=== PATIENT | female | born 1995 | race Caucasian/White ===

== ENCOUNTER → 2017-10-24 11:10 | Outpatient (CLI) | payer MEDICAID, SELFPAY ==
[2017-10-24 13:29] LABS: hCG Titer Quant., Serum 147 mIU/mL (<9 non-preg)
== END ==
PROVIDERS: Family Provider Pediatrics; PCP Pediatrics; Visit Provider Obstetrics & Gynecology
DX: O09.90 Supervision of high risk pregnancy, unspecified, unspecified trimester (principal); Z3A.00 Weeks of gestation of pregnancy not specified
CPT/HCPCS: 36415; 84702

== ENCOUNTER → 2017-10-26 09:07 | Outpatient (CLI) | payer MEDICAID, SELFPAY ==
[2017-10-26 12:57] LABS: hCG Titer Quant., Serum 326 mIU/mL (<9 non-preg)
== END ==
PROVIDERS: Family Provider Pediatrics; PCP Pediatrics; Visit Provider Obstetrics & Gynecology
DX: Z34.90 Encounter for supervision of normal pregnancy, unspecified, unspecified trimester (principal); O09.299 Supervision of pregnancy with other poor reproductive or obstetric history, unspecified trimester; Z3A.00 Weeks of gestation of pregnancy not specified
CPT/HCPCS: 36415; 84702

== ENCOUNTER → 2017-11-15 10:44 | Outpatient (CLI) | payer MEDICAID, SELFPAY ==
[2017-11-15 12:36] LABS: Absolute Lymphocyte Count 1.58 X10^3/ul (0.83-4.51); Absolute Neutrophil Count 2.9 X10^3/uL (2.0-7.7); Basophil# 0.01 X10^3/uL; Basophil% 0.2 % (0-1); Eosinophil# 0.08 X10^3/uL; Eosinophils% 1.5 % (0-5); Hematocrit 39.7 % (37-47); Hemoglobin 13.1 g/dl (12.0-15.0); Lymphocyte # 1.58 X10^3/ul (4.0); Lymphocyte % 29.4 % (19-41); Mean Corpuscular Hgb 29.7 pg (27.0-32.0); Mean Platelet Vol. 11.2 fl (6.2-12.0); Monocyte# 0.76 X10^3/uL; Monocyte% 14.2 % (0-10); Neutrophil # 2.94 X10^3/uL (2.7-7.7); Neutrophil % 54.7 % (47-70); Platelet Count 193 K/mm3 (150-450); RBC Distribution Width CV 14.5 % (11.6-14.6); RBC Distribution Width SD 47.1 fl (35.1-43.9); Red Blood Count 4.41 M/mm3 (4.2-5.4); White Blood Count 5.4 K/mm3 (4.4-11.0)
[2017-11-15 12:41] LABS: POSITIVE COUNT NO; POSITIVE DIFFERENTIAL NO; POSITIVE MORPHOLOGY NO
[2017-11-16 09:46] LABS: HIV - WCH Non-Reactive (Nonreactive); Rubella IgG 1.9 IU/mL
[2017-11-16 11:27] LABS: HEPATITIS B SURFACE AG Negative (Negative)
[2017-11-18 03:15] LABS: Rapid Plasmin Reagin (RPR) NONREACTIVE (NONREACTIVE)
== END ==
PROVIDERS: Family Provider Pediatrics; PCP Pediatrics; Visit Provider Obstetrics & Gynecology
DX: O09.90 Supervision of high risk pregnancy, unspecified, unspecified trimester (principal); Z3A.00 Weeks of gestation of pregnancy not specified
CPT/HCPCS: 36415; 85025; 86592; 86703; 86762; 86850; 86900; 87340

== ENCOUNTER → 2017-11-15 11:32 | Outpatient (CLI) | payer MEDICAID, SELFPAY ==
[2017-11-15 13:27] LABS: Chlamydia Trachomatis by PCR POSITIVE (Negative); Neisserai gonorrhoeae by PCR Negative (Negative); Probe Check PASS
== END ==
PROVIDERS: Visit Provider Obstetrics & Gynecology
DX: O09.90 Supervision of high risk pregnancy, unspecified, unspecified trimester (principal); Z3A.00 Weeks of gestation of pregnancy not specified
CPT/HCPCS: 36415; 85025; 86592; 86703; 86762; 86850; 86900; 87086; 87088; 87340; 87491; 87591

== ENCOUNTER → 2017-12-21 12:42 | Outpatient (CLI) | payer MEDICAID, SELFPAY ==
[2017-12-21 17:12] LABS: Chlamydia Trachomatis by PCR Negative (Negative); Neisserai gonorrhoeae by PCR Negative (Negative); Probe Check PASS; Sample Adequacy Control PASS; Specimen Processing Control PASS
== END ==
PROVIDERS: Visit Provider Nurse Practitioner Women's Health
DX: O98.811 Other maternal infectious and parasitic diseases complicating pregnancy, first trimester (principal); A74.9 Chlamydial infection, unspecified; Z3A.00 Weeks of gestation of pregnancy not specified
CPT/HCPCS: 87491; 87591

== ENCOUNTER 2018-02-20 10:15 | Outpatient (CLI) | payer MEDICAID, SELFPAY ==
[2018-02-20 10:34] VITALS: BMI 29.1
[2018-02-20 11:30] LABS: Absolute Lymphocyte Count 0.49 X10^3/ul (0.83-4.51); Absolute Neutrophil Count 5.4 X10^3/uL (2.0-7.7); Basophil# 0.01 X10^3/uL; Basophil% 0.2 % (0-1); Differential Indicated SCAN CRITERIA MET; Eosinophil# 0.05 X10^3/uL; Eosinophils% 0.8 % (0-5); Hematocrit 36.9 % (37-47); Hemoglobin 12.5 g/dl (12.0-15.0); Lymphocyte # 0.49 X10^3/ul (4.0); Lymphocyte % 7.8 % (19-41); Mean Corp Hgb Conc 33.9 g/gl (32-36); Mean Corpuscular Hgb 32.1 pg (27.0-32.0); Mean Corpuscular Volume 94.6 fL (81-99); Monocyte# 0.33 X10^3/uL; Monocyte% 5.3 % (0-10); Neutrophil # 5.38 X10^3/uL (2.7-7.7); Neutrophil % 85.6 % (47-70); POSITIVE COUNT NO; POSITIVE DIFFERENTIAL YES; POSITIVE MORPHOLOGY NO; Platelet Count 193 K/mm3 (150-450); RBC Distribution Width CV 14.2 % (11.6-14.6); RBC Distribution Width SD 47.5 fl (35.1-43.9); White Blood Count 6.3 K/mm3 (4.4-11.0)
[2018-02-20 12:15] LABS: Bacteria 0 SEEN /hpf (None Seen); Mucous, Urine 0 SEEN /hpf (<or=2+); Red Blood Cells-Urine 0 SEEN /hpf (0-5)
[2018-02-20 12:17] LABS: Color, Urine Yellow (Yellow); Glucose, Dipstick Normal (Normal); Ketone-Dipstick 50 mg/dl (Negative); Leukocyte Esterase-Dipstick 25 /ul (Negative); Nitrite-Dipstick Negative (Negative); Occult Blood-Urine Negative /ul (Negative); Protein-Dipstick Negative (Negative); Urine Bilirubin Dipstick Negative (Negative); Urine Clarity Sl. Cloudy (Clear); Urine Urobilinogen Normal (Normal)
[2018-02-20 12:27] LABS: Squamous Epithelial Cells - UA 0-5 SEEN /hpf (5-10); White Blood Cells 0-5 SEEN /hpf (0-5)
--- NOTE | 2018-02-21 09:00 | OB.TRI.NOTE ---
- Problem List (1) Threatened labor Status: Acute History of Present Illness Date of Service: 02/20/18 Was patient seen by the physician?: No Reason For Visit: NAUSEA VOMITING ABDOMINAL PAIN History of Present Illness: c oabdominal cramping Allergies No Known Allergies Allergy (Verified 02/20/18 10:34) - Pertinent Past Medical History Medical History: Past Medical History (Last Reviewed 02/13/18 @ 12:00 by Milly Sorenson) Depression Surgical History: Past Surgical History (Last Reviewed 02/13/18 @ 12:00 by Milly Sorenson) History of appendectomy NST - FHR Rate Baby A Baseline: 150-160 Uterine Activity:: no ctx Impression/Plan threatened ptl abdomina lpain cervix closed no regular ctx dc home
== END 2018-02-20 14:05 | disposition home or self-care (01) ==
LOC: WPOUT 10:22 → WP 02-23 09:16
PROVIDERS: Visit Provider Obstetrics & Gynecology
DX: O47.00 False labor before 37 completed weeks of gestation, unspecified trimester (principal); Z3A.00 Weeks of gestation of pregnancy not specified
CPT/HCPCS: 59050; 81001; 85025; 99218; G0378

== ENCOUNTER 2018-04-08 23:22 | Observation (INO) | payer MEDICAID, SELFPAY ==
[2018-04-08 23:46] LABS: Bacteria 0 SEEN /hpf (None Seen); Mucous, Urine 0 SEEN /hpf (<or=2+); Red Blood Cells-Urine 0 SEEN /hpf (0-5)
[2018-04-08 23:56] LABS: Color, Urine Yellow (Yellow); Glucose, Dipstick Normal (Normal); Ketone-Dipstick 5 mg/dl (Negative); Leukocyte Esterase-Dipstick 100 /ul (Negative); Nitrite-Dipstick Negative (Negative); Occult Blood-Urine Negative /ul (Negative); Protein-Dipstick Negative (Negative); Urine Bilirubin Dipstick Negative (Negative); Urine Clarity Sl. Cloudy (Clear); Urine Urobilinogen Normal (Normal); Urine pH 6.5 (5.0 - 8.0)
[2018-04-08 23:57] VITALS: BMI 28.0
[2018-04-09 00:13] LABS: Fetal Fibronectin Negative
[2018-04-09 00:22] LABS: Amorphous Sediment 2+ URATE; Squamous Epithelial Cells - UA 0-5 SEEN /hpf (5-10); White Blood Cells 5-10 SEEN /hpf (0-5)
[2018-04-09] MEDS: Nalbuphine 10 MG/ML Ampul IM ×2 (00:34→17:20)
[2018-04-09] MEDS: Betamethasone/Betamethasone 30 MG/5 ML Vial 12 MG IM (01:57)
[2018-04-09] MEDS: DiphenhydrAMINE 25 MG Capsule 50 MG PO (02:07)
--- NOTE | 2018-04-09 03:25 | PCM.HP.OB ---
- Problem List (1) Threatened labor Status: Acute History Date of Admission: 04/09/18 Final LUDIVINA: 07/01/18 Gestational age: 28 Weeks and 1 Days History of this : 22 yo presents at 28 weeks with contractions and cramping. she has a negative fibernectin, and she isn't having regular contractions now, but has some questionable cervical change. she is on progesterone injections for a history of 19 week labor and delivery and loss. Medical History: Medical History (Last Reviewed 03/13/18 @ 14:00 by Domonique Wheatley) Depression Surgical History: Surgical History (Last Reviewed 03/13/18 @ 14:00 by Domonique Wheatley) History of appendectomy Z98.890, Z90.49 Allergies No Known Allergies Allergy (Verified 03/13/18 14:00) Home Medications: Home Medications vitamin,calcium,ihibbojb-slro-vtrty acid tablet 1 tab PO QDAY MDD one 10/24/17 Hydroxyprogesterone Caproate [Sharonda] IM QWEEK 04/08/18 Smoking Status: Current every day smoker Alcohol: None Number of Fetus(es): 1 Heart Tracin moderate variability reactive no decels cat I TOCO Analysis: no regular History Past Pregnancies: Past Pregnancies Delivery Date Name GA/Weeks Outcome Route Weight Gender Labor Length Anesthesia Delivery Location Provider FOB yajaira 19 PTD- loss Labs: [facility] Microbiology 04/08/18 23:35 Urine, Clean Catch Urine Culture - Pending [facility] Labs & Results 04/08/18 04/08/18 23:15 23:35 Urine Color Yellow Urine Clarity Sl. Cloudy Urine pH 6.5 Ur Specific [place] 1.020 Urine Protein Negative Urine Glucose (UA) Normal Urine Ketones 5 H Urine Occult Blood Negative Urine Nitrite Negative Urine Bilirubin Negative Urine Urobilinogen Normal Ur Leukocyte Esterase 100 H Urine RBC 0 SEEN Urine WBC 5-10 SEEN Ur Squamous Epith Cells 0-5 SEEN Amorphous Sediment 2+ URATE Urine Bacteria 0 SEEN Urine Mucus 0 SEEN Fibronectin Negative Social History Smoking Status Current every day smoker Expected Infant Delivery Method: Spontaneous Vaginal Review of Systems Constitutional: Denies: Fever, Malaise Eyes: Denies: Blurred vision, Vision Change HEENT: Denies: Head Aches, Visual Changes Cardiovascular: Denies: Chest Pain, Palpitations Respiratory: Denies: Cough, Shortness of Breath, Wheezing Gastrointestinal: Denies: Abdominal Pain, Diarrhea, Nausea, Vomiting Genitourinary: Denies: Dysuria, Hematuria Musculoskeletal: Denies: Joint Pain, Muscle pain Skin: Denies: Lesions, Rash Neurological: Denies: Blurred vision, Focal weakness, Headaches Psychiatric: Denies: Anxiety, Depression Endocrine: Denies: Heat/ Cold Intolerance Hematologic/ Lymphatic: Denies: Easy Bruising, Easy Bleeding Physical Exam General: Alert, Cooperative, No apparent distress HEENT: Atraumatic, Normocephalic. Negative for: Thyromegaly, Lymphadenopathy Cardiovascular: Regular rate Lungs: Normal air movement Abdomen: Soft, Non Tender, Gravid Neurological: Deep Tendon Reflexes 2+/4 and Symmetrical, Neuro grossly intact. Negative for: Clonus RN LIAISON: Normal external genitalia. Negative for: Vulvar lesions Estimated gestational size: Appropriate for gestational size Presentation: Cephalic Cervix Dilation (cm): 1.5 Station: -3 Effacement (%): 20 Assessment/Plan All Active Problems (Last Reviewed 03/13/18 @ 14:00 by Domonique Wheatley) Threatened labor (Acute) screening encounter (Acute) Rubella non-immune status, antepartum (Acute) Chlamydia infection affecting in first trimester, antepartum (Acute) History of delivery, currently (Acute) Anxiety and depression (Acute) Supervision of high-risk (Acute) This is a 22 year-old, at 28 weeks gestational age with threatened PTL 1. contractions- exp management for now due to questionable cervical change. negative FFN. check cervical length on ultrasound tomorrow. monitor. if cervical change or shortened cervical length recommend tocolytics. 2. prematurity- give celestone. check ua culture, gc chlamydia, rapid strep, urine tox
[2018-04-09 04:13] LABS: Amphetamine Urine VISTA NEGATIVE (<1000 ng/mL); Barbiturate Urine VISTA NEGATIVE (< 200 ng/mL); Benzodiazepine Urine VISTA NEGATIVE (< 200 ng/mL); Cocaine Urine VISTA NEGATIVE (< 300 ng/mL); Ecstacy Urine VISTA NEGATIVE (< 500 ng/mL); Methadone Urine VISTA NEGATIVE (< 300 ng/mL); PCP Urine VISTA NEGATIVE (< 25 ng/mL); THC Urine VISTA POSITIVE (< 50 ng/mL); Vista UDS pH Range 6
--- NOTE | 2018-04-09 04:15 | PCM.PN.BLA ---
Progress Note toco- no regular ctx. cervical exam repeated and no cervical change. recommend expectant management.
[2018-04-09 05:57] LABS: Group B Strep DNA By PCR Negative (Negative); Internal Control PASS; Probe Check PASS; Specimen Processing Control PASS
[2018-04-09 06:03] LABS: Chlamydia Trachomatis by PCR Negative (Negative); Neisserai gonorrhoeae by PCR Negative (Negative)
[2018-04-09 06:04] LABS: Probe Check PASS; Sample Adequacy Control PASS; Specimen Processing Control PASS
[2018-04-09] MEDS: Acetaminophen 500 MG Tablet 1000 MG PO (13:02)
--- NOTE | 2018-04-09 14:59 | PCM.PN.OB ---
Patient Problems: Active and Suspected Problems (Last Reviewed 03/13/18 @ 14:00 by Domonique Wheatley) Threatened labor (Acute) Subjective: patient still feeling crampy, no regular or timeable contractions but feeling pelvic pressure. she had some mucousy bloody discharge after being checked this morning but nothing since. Objective: fht 140s moderate variability reactive no decels. cat I tracing [place] no contractions seen - Physical Exam General: Alert, Oriented x3 Lungs: Normal air movement Abdomen: Soft, Non Tender, Gravid Weight: 163 lb 2.273 oz Body Mass Index (BMI) 28.0 Laboratory Tests Past 24 Hrs 04/08/18 04/08/18 04/08/18 23:15 23:35 23:35 Urine Color Yellow Urine Clarity Sl. Cloudy Urine pH 6.5 Ur Specific [place] 1.020 Urine Protein Negative Urine Glucose (UA) Normal Urine Ketones 5 H Urine Occult Blood Negative Urine Nitrite Negative Urine Bilirubin Negative Urine Urobilinogen Normal Ur Leukocyte Esterase 100 H Urine RBC 0 SEEN Urine WBC 5-10 SEEN Ur Squamous Epith Cells 0-5 SEEN Amorphous Sediment 2+ URATE Urine Bacteria 0 SEEN Urine Mucus 0 SEEN Urine Opiates Screen NEGATIVE Urine Methadone Screen NEGATIVE Ur Barbiturates Screen NEGATIVE Ur Phencyclidine Scrn NEGATIVE Ur Amphetamines Screen NEGATIVE U Methamphetamin-MDMA NEGATIVE U Benzodiazepines Scrn NEGATIVE Urine Cocaine Screen NEGATIVE U Cannabinoids Screen POSITIVE H Ur Drug Screen Comment Chlam trachomat DNA PCR N.gonorrhoeae DNA (PCR) Group B Strep DNA Fibronectin Negative Specimen Comment 04/09/18 04/09/18 04:00 04:00 Urine Color Urine Clarity Urine pH Ur Specific [place] Urine Protein Urine Glucose (UA) Urine Ketones Urine Occult Blood Urine Nitrite Urine Bilirubin Urine Urobilinogen Ur Leukocyte Esterase Urine RBC Urine WBC Ur Squamous Epith Cells Amorphous Sediment Urine Bacteria Urine Mucus Urine Opiates Screen Urine Methadone Screen Ur Barbiturates Screen Ur Phencyclidine Scrn Ur Amphetamines Screen U Methamphetamin-MDMA U Benzodiazepines Scrn Urine Cocaine Screen U Cannabinoids Screen Ur Drug Screen Comment Chlam trachomat DNA PCR Negative N.gonorrhoeae DNA (PCR) Negative Group B Strep DNA Negative Fibronectin Specimen Comment Not Reportable Medical Necessity - Tobacco Use Smoking Status: Current every day smoker Assessment/Plan All Active Problems (Last Reviewed 03/13/18 @ 14:00 by Domonique Wheatley) Threatened labor (Acute) screening encounter (Acute) Rubella non-immune status, antepartum (Acute) Chlamydia infection affecting in first trimester, antepartum (Acute) History of delivery, currently (Acute) Anxiety and depression (Acute) Supervision of high-risk (Acute) This is a 22 year-old, at 28 weeks gestational age with threatened PTL 1. contractions- exp management for now due to questionable cervical change. negative FFN. cervical length 2.3 cm. monitor. if cervical change recommend tocolytics. 2. prematurity- s/p celestone x 1. repeat at 2 am 3. h/o 19 week delivery- weekly progesterone shots
[2018-04-10] MEDS: Nalbuphine 10 MG/ML Ampul IM (00:09)
[2018-04-10] MEDS: Betamethasone/Betamethasone 30 MG/5 ML Vial 12 MG IM (01:52)
[2018-04-10] MEDS: Acetaminophen 500 MG Tablet 1000 MG PO (01:58)
[2018-04-10] MEDS: Zolpidem Tartrate 5 MG Tablet PO (01:59)
[2018-04-10] MEDS: NON-FORMULARY MISCELL. (08:49)
== END 2018-04-10 09:16 | disposition home or self-care (01) ==
PROVIDERS: Admitting Provider Obstetrics & Gynecology; Visit Provider Obstetrics & Gynecology
DX: O60.03 Preterm labor without delivery, third trimester (principal); Z3A.28 28 weeks gestation of pregnancy; O99.333 Smoking (tobacco) complicating pregnancy, third trimester; F17.200 Nicotine dependence, unspecified, uncomplicated; Z87.42 Personal history of other diseases of the female genital tract; O99.89 Other specified diseases and conditions complicating pregnancy, childbirth and the puerperium; N20.0 Calculus of kidney
CPT/HCPCS: 59025; 59050; 76770; 76816; 80307; 81001; 82731; 87081; 87086; 87088; 87491; 87591; 87653; 96372; 99218; G0378; J0702

== ENCOUNTER 2018-04-10 15:30 | Outpatient (CLI) | payer MEDICAID, SELFPAY ==
[2018-04-10 15:48] VITALS: BMI 27.8
--- NOTE | 2018-04-11 21:51 | OB.TRI.NOTE ---
- Problem List (1) Threatened labor Status: Acute History of Present Illness Date of Service: 04/10/18 Was patient seen by the physician?: Yes Reason For Visit: R/O LABOR Date of Service: 04/10/18 History of Present Illness: co back pain- possible kidney stone, threatened PTL Allergies No Known Allergies Allergy (Verified 03/13/18 14:00) - Pertinent Past Medical History Medical History: Past Medical History (Last Reviewed 03/13/18 @ 14:00 by Domonique Wheatley) Depression Surgical History: Past Surgical History (Last Reviewed 03/13/18 @ 14:00 by Domonique Wheatley) History of appendectomy NST - FHR Rate Baby A Baseline: 130 Variability:: Moderate Accelerations:: 15 x 15 Decelerations:: None NST Reactive:: Yes FHR Category:: Category I Uterine Activity:: no regular Impression/Plan kidney stones- renal ultrasound suspicious, dc home aggressive fluids and pain control
== END 2018-04-10 18:35 | disposition home or self-care (01) ==
LOC: WPOUT 15:34 → WP 15:35
PROVIDERS: Visit Provider Obstetrics & Gynecology
DX: O99.89 Other specified diseases and conditions complicating pregnancy, childbirth and the puerperium (principal); N20.0 Calculus of kidney; Z3A.00 Weeks of gestation of pregnancy not specified
CPT/HCPCS: 59025; 59050; 76770; 99218; G0378

== ENCOUNTER → 2018-04-13 10:53 | Outpatient (CLI) | payer MEDICAID, SELFPAY ==
[2018-04-13 13:20] LABS: Glucose Challenge Gest 1H 50g 104 mg/dL (70-140)
== END ==
PROVIDERS: Visit Provider Obstetrics & Gynecology
DX: Z34.90 Encounter for supervision of normal pregnancy, unspecified, unspecified trimester (principal)
CPT/HCPCS: 36415; 82950

== ENCOUNTER 2018-05-31 18:10 | Outpatient (CLI) | payer MEDICAID, SELFPAY ==
[2018-05-31 18:26] VITALS: BMI 29.7
[2018-05-31 18:36] LABS: Color, Urine Yellow (Yellow); Glucose, Dipstick Normal (Normal); Ketone-Dipstick Negative (Negative); Leukocyte Esterase-Dipstick 100 /ul (Negative); Nitrite-Dipstick Negative (Negative); Occult Blood-Urine Negative /ul (Negative); Protein-Dipstick Negative (Negative); Specific Gravity, Urine 1.005 (1.002-1.030); Urine Bilirubin Dipstick Negative (Negative); Urine Clarity Sl. Cloudy (Clear); Urine Urobilinogen Normal (Normal)
[2018-05-31] MEDS: Lactated Ringers 1,000 ML 999 ML IV (19:14)
[2018-05-31] MEDS: proMETHazine 25 MG/ML Syringe 12.5 MG IV (19:14)
[2018-05-31 19:54] LABS: ALB/GLOB Ratio 0.7 RATIO (0.9-2.4); AST(SGOT) 12 U/L (15-37); Alanine Aminotransfer ALT/SGPT 18 U/L (13-56); Albumin, Serum 2.7 g/dL (3.2-5.0); Alkaline Phosphatase 94 U/L (45-117); Anion Gap 7 (5-15); BUN 10 mg/dL (7-18); BUN/Creat Ratio 24.7 RATIO (10-20); Calcium,Total 8.3 mg/dL (8.5-10.1); Chloride 105 mmol/L (98-107); EST Glomerular Filtration Rate 208 mL/min (>60); Est Glom Filt Rate - Afr Amer 252 mL/min (>60); Globulin 3.9 g/dL (2.2-4.2); Glucose 77 mg/dL (74-106); Potassium 3.9 mmol/L (3.5-5.1); Protein, Total 6.6 g/dL (6.4-8.2); Sodium Level 134 mmol/L (136-145)
--- NOTE | 2018-06-05 21:09 | OB.TRI.NOTE ---
- Problem List (1) False labor Status: Acute History of Present Illness Date of Service: 05/31/18 Reason For Visit: ABD PAIN History of Present Illness: co abdominal pain possible contractions Allergies No Known Allergies Allergy (Verified 05/29/18 10:30) - Pertinent Past Medical History Medical History: Past Medical History (Last Reviewed 05/29/18 @ 10:30 by Amber Alex) Depression Kidney stone Surgical History: Past Surgical History (Last Reviewed 05/29/18 @ 10:30 by Amber Alex) History of appendectomy Laboratory Studies: Laboratory Tests 05/31/18 05/31/18 Range/Units 19:05 18:25 Sodium 134 L (136-145) mmol/L Potassium 3.9 (3.5-5.1) mmol/L Chloride 105 (98-107) mmol/L Carbon Dioxide 22.0 (21.0-32.0) mmol/L Anion Gap 7 (5-15) BUN 10 (7-18) mg/dL Creatinine 0.40 L (0.55-1.02) mg/dL Estim Creat Clear Calc 190.50 ml/min Est GFR (MDRD) Af Amer 252 (>60) mL/min Est GFR (MDRD) Non-Af 208 (>60) mL/min BUN/Creatinine Ratio 24.7 H (10-20) RATIO Glucose 77 (74-106) mg/dL Calcium 8.3 L (8.5-10.1) mg/dL Total Bilirubin 0.40 (0.20-1.00) mg/dL AST 12 L (15-37) U/L ALT 18 (13-56) U/L Alkaline Phosphatase 94 (45-117) U/L Total Protein 6.6 (6.4-8.2) g/dL Albumin 2.7 L (3.2-5.0) g/dL Globulin 3.9 (2.2-4.2) g/dL Albumin/Globulin Ratio 0.7 L (0.9-2.4) RATIO Urine Color Yellow (Yellow) Urine Clarity Sl. Cloudy (Clear) Urine pH 7.0 (5.0 - 8.0) Ur Specific [place] 1.005 (1.002-1.030) Urine Protein Negative (Negative) mg/dl Urine Glucose (UA) Normal (Normal) mg/dl Urine Ketones Negative (Negative) mg/dl Urine Occult Blood Negative (Negative) /ul Urine Nitrite Negative (Negative) Urine Bilirubin Negative (Negative) mg/dL Urine Urobilinogen Normal (Normal) mg/dl Ur Leukocyte Esterase 100 H (Negative) /ul Review of Systems Constitutional: Denies: Fever, Malaise Eyes: Denies: Blurred vision, Vision Change HEENT: Denies: Head Aches, Visual Changes Cardiovascular: Denies: Chest Pain, Palpitations Respiratory: Denies: Cough, Shortness of Breath, Wheezing Gastrointestinal: Denies: Abdominal Pain, Diarrhea, Nausea, Vomiting Genitourinary: Denies: Dysuria, Hematuria Musculoskeletal: Denies: Joint Pain, Muscle pain Skin: Denies: Lesions, Rash Neurological: Denies: Blurred vision, Focal weakness, Headaches Psychiatric: Denies: Anxiety, Depression Endocrine: Denies: Heat/ Cold Intolerance Hematologic/ Lymphatic: Denies: Easy Bruising, Easy Bleeding Physical Exam General: Alert, Cooperative, No apparent distress HEENT: Atraumatic, Normocephalic. Negative for: Thyromegaly, Lymphadenopathy Cardiovascular: Regular rate Lungs: Normal air movement Abdomen: Soft, Non Tender, Gravid Neurological: Deep Tendon Reflexes 2+/4 and Symmetrical, Neuro grossly intact. Negative for: Clonus BLACKJACK PIT BOSS: Normal external genitalia. Negative for: Vulvar lesions Estimated gestational size: Appropriate for gestational size Presentation: Cephalic NST - FHR Rate Baby A Baseline: 130 Variability:: Moderate Accelerations:: 15 x 15 Decelerations:: None NST Reactive:: Yes FHR Category:: Category I Uterine Activity:: No regular Impression/Plan 22-year-old presents with abdominal pain possible contractions, no significant dilation and no regular contractions false labor DC home labor precautions
== END 2018-05-31 20:45 | disposition home or self-care (01) ==
LOC: WPOUT 18:14 → WP 18:15
PROVIDERS: Visit Provider Obstetrics & Gynecology
DX: O47.9 False labor, unspecified (principal); Z3A.00 Weeks of gestation of pregnancy not specified
CPT/HCPCS: 96361; 96374; 36415; 59025; 59050; 80053; 81002; 87086; 87088; 99218; J7120; G0378

== ENCOUNTER 2018-06-07 00:27 | Inpatient (IN) | payer MEDICAID, SELFPAY ==
[2018-06-06 22:27] VITALS: BMI 29.9
[2018-06-06] MEDS: Nalbuphine 10 MG/ML Ampul IM (23:13)
[2018-06-07] MEDS: Lactated Ringers 1,000 ML 50 ML IV ×4 (00:52→08:23)
[2018-06-07 01:12] LABS: Hematocrit 38.2 % (37-47); Hemoglobin 12.7 g/dl (12.0-15.0); Mean Corp Hgb Conc 33.2 g/gl (32-36); Mean Corpuscular Hgb 31.4 pg (27.0-32.0); Mean Corpuscular Volume 94.6 fL (81-99); Mean Platelet Vol. 10.4 fl (6.2-12.0); Platelet Count 247 K/mm3 (150-450); RBC Distribution Width CV 13.1 % (11.6-14.6); RBC Distribution Width SD 43.5 fl (35.1-43.9); Red Blood Count 4.04 M/mm3 (4.2-5.4); White Blood Count 15.1 K/mm3 (4.4-11.0)
[2018-06-07 01:14] LABS: Scan Indicated on CBC? Y/N NO
--- NOTE | 2018-06-07 05:06 | PCM.HP.OB ---
- Problem List (1) Nephrolithiasis Status: Acute Comment: fluids, PRN pain meds (2) screening encounter Status: Acute Comment: NT done 12/21/17 (3) Rubella non-immune status, antepartum Status: Acute Comment: MMR (4) Chlamydia infection affecting in first trimester, antepartum Status: Acute Comment: Repeat at 36 wk (5) History of delivery, currently Status: Acute Comment: mfm consult, progesterone injections, serial cervical (6) Anxiety and depression Status: Acute Comment: zoloft in the past, none now recommend psychotherapy (7) Supervision of high-risk Status: Acute Qualifiers: Comment: PRR LUDIVINA 07/01/18 girl- [facility] ([facility] Zel[facility]) [facility] [place]- not involved History Date of Admission: 04/09/18 Final LUDIVINA: 07/01/18 Gestational age: 36 Weeks and 4 Days History of this : This is a 22 year-old, at 36 weeks gestational age presents in labor 5 cm dilated. she has had bloody show and denies any lof but has had regular painful ctx. she has had a complicated by contractions. Medical History: Medical History (Last Reviewed 05/29/18 @ 10:30 by Amber Alex) Depression Kidney stone N20.0 Surgical History: Surgical History (Last Reviewed 05/29/18 @ 10:30 by Amber Alex) History of appendectomy Z98.890, Z90.49 Allergies No Known Allergies Allergy (Verified 06/06/18 22:28) Home Medications: Home Medications vitamin,calcium,ayoutmqq-vxuh-nmneu acid tablet 1 tab PO QDAY MDD one 10/24/17 Hydroxyprogesterone Caproate [Sharonda] IM QWEEK 04/08/18 diphenhydramine 25 mg capsule 50 mg PO Q4H PRN 04/25/18 Smoking Status: Light Smoker (<10/day) Alcohol: None Number of Fetus(es): 1 Heart Tracin moderate variability reactive periodic variabe decel intermittent cat II tracing overall reassuring TOCO Analysis: q3-5 History Past Pregnancies: Past PregnanciesPregancy History 2 Elective abortions Hx Para 0 Spontaneous abortions 1 Hx # Term Pregnancies Ectopic pregnancies Hx # Pregnancies Multiple births # of living children Past Pregnancies Del. Date Name GA/Weeks Outcome Route Bth Weight Infant Gen Labor Lgth Anesthesia [facility] Provider FOB 05/03/17 Almaz Zelaya 19 spontaneous none Ryan Valentin Delivery Date: 05/03/17 On 10/24/17 @ 10:52 Dianne Schaffer pyelonephritis prior, PPROM, [place]/Di Labs: Mom's Labs & Results 06/07/18 06/07/18 00:52 00:52 WBC 15.1 H RBC 4.04 L Hgb 12.7 Hct 38.2 MCV 94.6 MCH 31.4 MCHC 33.2 RDW 13.1 RDW Differential 43.5 Plt Count 247 MPV 10.4 Blood Type A POSITIVE Antibody Screen NEGATIVE Course Did the patient receive Yes care? Labs Blood Type: A RH: POSITIVE RPR/VDRL/Syphilis Nonreactive Rubella status Non-immune HbSAg Negative Date Done: 11/15/17 Chlamydia Negative Gonorrhea Negative HIV/AIDS Non-Reactive Group B Strep: Negative Current Obstetrical History Gestational Diabetes No Incompetent Cervix No Infertility No IUGR No Macrosomia No Hypertension/Pre-eclampsia No Placenta Previa/Abruption No PTL/PROM Yes: 29 weeks - given steriods and nubain Uterine anomaly No Oligohydramnios No Polyhydramnios No Multiple gestation No Past Medical History Asthma Yes: sport and allergy induced and uses inhaler when needed Diabetes No Hypertension No Heart disease No Mitral valve prolapse No Neurologic/Seizure disorder/ No Migraines Kidney disease No Liver disease No Varicosities No Clotting disorders/Hx of DVT No Thyroid Dysfunction No Other medical diseases No Psychiatric disorders No Major trauma No Abnormal PAP smear No Sleep apnea No Mammogram in the last 2 years No Social History Marital Status: SINGLE Alleged father Román Potter Hx Smoking Yes Smoking Status Light Smoker (<10/day) Expected Delivery Method: Spontaneous Vaginal Describe any other labor & delivery plans:: OB Visit. LUDIVINA Calculator. Estimated Delivery Date 07/01/18. Based on LMP (uncertain) 09/24/17. Current WG 35w 2d. Number 1. Expected Delivery Route/Plan. . Specific Issue/Plans. flu vaccine: declined. minichart given: tdap vaccine: given. rhogam: na. LARC form signed: declined. labor support person: judy. pain management: epidural. cut cord/dad catch: []. PP control planned: []. special requests: [] Review of Systems Constitutional: Denies: Fever, Malaise Eyes: Denies: Blurred vision, Vision Change HEENT: Denies: Head Aches, Visual Changes Cardiovascular: Denies: Chest Pain, Palpitations Respiratory: Denies: Cough, Shortness of Breath, Wheezing Gastrointestinal: Denies: Abdominal Pain, Diarrhea, Nausea, Vomiting Genitourinary: Denies: Dysuria, Hematuria Musculoskeletal: Denies: Joint Pain, Muscle pain Skin: Denies: Lesions, Rash Neurological: Denies: Blurred vision, Focal weakness, Headaches Psychiatric: Denies: Anxiety, Depression Endocrine: Denies: Heat/ Cold Intolerance Hematologic/ Lymphatic: Denies: Easy Bruising, Easy Bleeding Physical Exam General: Alert, Cooperative, No apparent distress HEENT: Atraumatic, Normocephalic. Negative for: Thyromegaly, Lymphadenopathy Cardiovascular: Regular rate Lungs: Normal air movement Abdomen: Soft, Non Tender, Gravid Neurological: Deep Tendon Reflexes 2+/4 and Symmetrical, Neuro grossly intact. Negative for: Clonus EMERGENCY MANAGEMENT SYSTEM DIRECTOR: Normal external genitalia. Negative for: Vulvar lesions Estimated gestational size: Appropriate for gestational size Presentation: Cephalic Assessment/Plan All Active Problems (Last Reviewed 05/29/18 @ 10:30 by Amber Alex) False labor (Acute) Uterine size-date discrepancy in third trimester (Acute) Nephrolithiasis (Acute) screening encounter (Acute) Rubella non-immune status, antepartum (Acute) Chlamydia infection affecting in first trimester, antepartum (Acute) History of delivery, currently (Acute) Anxiety and depression (Acute) Supervision of high-risk (Acute) Threatened labor (Resolved) This is a 22 year-old, , at 36 weeks gestational age presents PTL Patient presents IAL, plan expectant management for , pitocin PRN. arom clear fluid Pain management: epidural. GBS negative. Management of any complications: prematurity I have reviewed the [facility] and made any clinically relevant updates.
--- NOTE | 2018-06-07 05:10 | HP.PCM_ITS ---
- Problem List (1) Nephrolithiasis Status: Acute Comment: fluids, PRN pain meds (2) screening encounter Status: Acute Comment: NT done 12/21/17 (3) Rubella non-immune status, antepartum Status: Acute Comment: MMR (4) Chlamydia infection affecting in first trimester, antepartum Status: Acute Comment: Repeat at 36 wk (5) History of delivery, currently Status: Acute Comment: mfm consult, progesterone injections, serial cervical (6) Anxiety and depression Status: Acute Comment: zoloft in the past, none now recommend psychotherapy (7) Supervision of high-risk Status: Acute Qualifiers: Comment: PRR LUDIVINA 07/01/18 girl- [facility] (decmary Zelaya) [place] [place]- not involved History Date of Admission: 04/09/18 Final LUDIVINA: 07/01/18 Gestational age: 36 Weeks and 4 Days History of this : This is a 22 year-old, at 36 weeks gestational age presents in labor 5 cm dilated. she has had bloody show and denies any lof but has had regular painful ctx. she has had a complicated by contractions. Medical History: Medical History (Last Reviewed 05/29/18 @ 10:30 by Amber Alex) Depression Kidney stone N20.0 Surgical History: Surgical History (Last Reviewed 05/29/18 @ 10:30 by Amber Alex) History of appendectomy Z98.890, Z90.49 Allergies No Known Allergies Allergy (Verified 06/06/18 22:28) Home Medications: Home Medications vitamin,calcium,jrnhnvfa-hahq-ugwcq acid tablet 1 tab PO QDAY MDD one 10/24/17 Hydroxyprogesterone Caproate [Sharonda] IM QWEEK 04/08/18 diphenhydramine 25 mg capsule 50 mg PO Q4H PRN 04/25/18 Smoking Status: Light Smoker (<10/day) Alcohol: None Number of Fetus(es): 1 Heart Tracin moderate variability reactive periodic variabe decel intermittent cat II tracing overall reassuring TOCO Analysis: q3-5 History Past Pregnancies: Past PregnanciesPregancy History 2 Elective abortions Hx Para 0 Spontaneous abortions 1 Hx # Term Pregnancies Ectopic pregnancies Hx # Pregnancies Multiple births # of living children Past Pregnancies Del. Date Name GA/Weeks Outcome Route Bth Weight Infant Gen Labor Lgth Anesthesia Del [facility] Provider FOB 05/03/17 Almaz Zelaya 19 spontaneous none Ryan Valentin Delivery Date: 05/03/17 On 10/24/17 @ 10:52 Dianne Schaffer pyelonephritis prior, PPROM, [place]/Di Labs: Mom's Labs & Results 06/07/18 06/07/18 00:52 00:52 WBC 15.1 H RBC 4.04 L Hgb 12.7 Hct 38.2 MCV 94.6 MCH 31.4 MCHC 33.2 RDW 13.1 RDW Differential 43.5 Plt Count 247 MPV 10.4 Blood Type A POSITIVE Antibody Screen NEGATIVE Course Did the patient receive Yes care? Labs Blood Type: A RH: POSITIVE RPR/VDRL/Syphilis Nonreactive Rubella status Non-immune HbSAg Negative Date Done: 11/15/17 Chlamydia Negative Gonorrhea Negative HIV/AIDS Non-Reactive Group B Strep: Negative Current Obstetrical History Gestational Diabetes No Incompetent Cervix No Infertility No IUGR No Macrosomia No Hypertension/Pre-eclampsia No Placenta Previa/Abruption No PTL/PROM Yes: 29 weeks - given steriods and nubain Uterine anomaly No Oligohydramnios No Polyhydramnios No Multiple gestation No Past Medical History Asthma Yes: sport and allergy induced and uses inhaler when needed Diabetes No Hypertension No Heart disease No Mitral valve prolapse No Neurologic/Seizure disorder/ No Migraines Kidney disease No Liver disease No Varicosities No Clotting disorders/Hx of DVT No Thyroid Dysfunction No Other medical diseases No Psychiatric disorders No Major trauma No Abnormal PAP smear No Sleep apnea No Mammogram in the last 2 years No Social History Marital Status: SINGLE Alleged father Román Potter Hx Smoking Yes Smoking Status Light Smoker (<10/day) Expected Delivery Method: Spontaneous Vaginal Describe any other labor & delivery plans:: OB Visit. LUDIVINA Calculator. Estimated Delivery Date 07/01/18. Based on LMP (uncertain) 09/24/17. Current WG 35w 2d. Number 1. Expected Delivery Route/Plan. . Specific Issue/Plans. flu vaccine: declined. minichart given: tdap vaccine: given. rhogam: na. LARC form signed: declined. labor support person: judy. pain management: epidural. cut cord/dad catch: []. PP control planned: []. special requests: [] Review of Systems Constitutional: Denies: Fever, Malaise Eyes: Denies: Blurred vision, Vision Change HEENT: Denies: Head Aches, Visual Changes Cardiovascular: Denies: Chest Pain, Palpitations Respiratory: Denies: Cough, Shortness of Breath, Wheezing Gastrointestinal: Denies: Abdominal Pain, Diarrhea, Nausea, Vomiting Genitourinary: Denies: Dysuria, Hematuria Musculoskeletal: Denies: Joint Pain, Muscle pain Skin: Denies: Lesions, Rash Neurological: Denies: Blurred vision, Focal weakness, Headaches Psychiatric: Denies: Anxiety, Depression Endocrine: Denies: Heat/ Cold Intolerance Hematologic/ Lymphatic: Denies: Easy Bruising, Easy Bleeding Physical Exam General: Alert, Cooperative, No apparent distress HEENT: Atraumatic, Normocephalic. Negative for: Thyromegaly, Lymphadenopathy Cardiovascular: Regular rate Lungs: Normal air movement Abdomen: Soft, Non Tender, Gravid Neurological: Deep Tendon Reflexes 2+/4 and Symmetrical, Neuro grossly intact. Negative for: Clonus TRAFFIC RECORDER: Normal external genitalia. Negative for: Vulvar lesions Estimated gestational size: Appropriate for gestational size Presentation: Cephalic Assessment/Plan All Active Problems (Last Reviewed 05/29/18 @ 10:30 by Amber Alex) False labor (Acute) Uterine size-date discrepancy in third trimester (Acute) Nephrolithiasis (Acute) screening encounter (Acute) Rubella non-immune status, antepartum (Acute) Chlamydia infection affecting in first trimester, antepartum (Acute) History of delivery, currently (Acute) Anxiety and depression (Acute) Supervision of high-risk (Acute) Threatened labor (Resolved) This is a 22 year-old, , at 36 weeks gestational age presents PTL Patient presents IAL, plan expectant management for , pitocin PRN. arom clear fluid Pain management: epidural. GBS negative. Management of any complications: prematurity I have reviewed the [facility] and made any clinically relevant updates.
[2018-06-07] MEDS: fentaNYL-bupivacaine (epidural) 100 ML BAG EPIDURAL (07:52)
[2018-06-07] MEDS: Ondansetron 4 MG/2 ML Vial IV (09:51)
[2018-06-07] MEDS: Oxytocin 30 units/NS 500 ml 30 UNITS/500 ML IV.SOLN IV (09:53)
--- NOTE | 2018-06-07 12:47 | PLAC_PTH ---
PATIENT: SARA LITTLE LOC: WP U#:[id number] AGE/SX: 22/F ROOM: WP001 RE06/07/[address]: Dr. Dianne Schaffer MD : 1995 BED: 1 DIS: 06/09/2018 SPEC #: [id number] RECD: 06/07/18 18:55 STATUS: STEPHANIE REShantel #: [id number] TIM: 06/07/18 12:[address]: Dianne Schaffer DEPT: SURGICAL PATHOLOGY RECD BY: Fidel Payton ENTERED: 06/08/18 07:52 SP TYPE: PLACENTA OTHR DR: No Primary Care Phys Tissues: Placenta, NOS Procedures: Surgery Specimen Level V HEADER OPERATION: Vaginal delivery PRE-OP DIAGNOSIS: 36.4 weeks gestation vaginal delivery TISSUE SUBMITTED: Placenta MICROSCOPIC DIAGNOSIS Placenta: Placental disc - third trimester placenta (472 gm). Focal increased intervillous and perivillous fibrin deposition. Membranes - acute chorioamnionitis. Umbilical cord - three blood vessels and acute funisitis. SJ:abelardo 06/12/18 MICROSCOPIC DESCRIPTION Slides are reviewed. GROSS DESCRIPTION SPECIMEN: PLACENTA / CLINICAL INFORMATION: A. Weight: 2.351 kg B. Gestational Age: 36 weeks C. Sex: Female PLACENTAL WEIGHT (POST FIXATION): 472 gm PLACENTAL DIMENSIONS: 15 x 15 x 3.5 cm PLACENTAL SHAPE: Usual ovoid PLACENTAL WEIGHT FOR GESTATIONAL AGE: Within 10-99th percentile MEMBRANES - Present A. Insertion: Marginal B. Site of rupture from edge: 3 cm from edge of placental disc C. Color of membrane: Enriquez-barth D. Abnormalities: None UMBILICAL CORD - Present A. Color: Enriquez-barth B. Insertion: Marginal C. Length: 22 cm D. Diameter: 1 cm E. Number of vessels: Three F. Abnormalities: None PLACENTAL DISC - Present A. Color of surface: Enriquez-barth B. surface abnormalities: None C. Maternal cotyledons: Intact with minimal tears. A plaque-like area is noted n the maternal surface measuring 3.5 x 3 cm. Sections of the body of the placenta underneath that area reveal firm, cut surfaces. D. Attached retro placental clot: No clot E. Cut surface: Dark red and spongy F. Lesions: None G. Separate clot: Absent SECTIONS SUBMITTED: 1. Membrane roll 2. Cord, maternal end 3. Cord, end 4. Placental disc, and maternal surfaces, firm area of placenta 5. Placental disc, and maternal surfaces, firm area of placenta 6. Placental disc, and maternal surfaces ES:abelardo 06/09/18 TC:2 CPT: 70638
[2018-06-07] MEDS: Ibuprofen 600 MG Tablet PO (18:00)
[2018-06-07] MEDS: Acetaminophen 500 MG Tablet 1000 MG PO (20:55)
--- NOTE | 2018-06-07 21:33 | OP.PCM_ITS ---
- Problem List (1) Nephrolithiasis Status: Acute Comment: fluids, PRN pain meds (2) screening encounter Status: Acute Comment: NT done 12/21/17 (3) Rubella non-immune status, antepartum Status: Acute Comment: MMR (4) Chlamydia infection affecting in first trimester, antepartum Status: Acute Comment: Repeat at 36 wk (5) History of delivery, currently Status: Acute Comment: mfm consult, progesterone injections, serial cervical (6) Anxiety and depression Status: Acute Comment: zoloft in the past, none now recommend psychotherapy (7) Supervision of high-risk Status: Acute Qualifiers: Comment: PRR LUDIVINA 07/01/18 girl- [facility] (dec[facility] Zel[facility]) [place] [place]- not involved Vaginal Delivery Maternal Presentation: Active Labor 22-year-old at 36 weeks presents with labor Amniotic Membrane Rupture Type: Artificial Amniotic Fluid Description: Clear Final LUDIVINA: 07/01/18 Gestational age: 36 Weeks and 4 Days Date of Procedure: 06/07/18 Pre-Operative Diagnosis: labor Post-Operative Diagnosis: Same Surgery/ Procedure Performed: Spontaneous Vaginal Delivery Type of Anesthesia: Epidural Description of Procedure: Patient began pushing and delivered the head in the MONI presentation. The head was delivered atraumatically and a loose nuchal x1 was identified and easily reduced over the infant's head. The anterior and posterior shoulders delivered without complication followed by the rest of the infant and the infant was placed on the maternal abdomen. Delayed cord clamping was employed for approxim ately 60 seconds. Cord was clamped and cut and gentle traction was applied to the cord and the placenta delivered spontaneously immediately following it was noted to be intact with three-vessel cord. The perineum and vagina were inspected and noted to have a small second-degree perineal laceration that was repaired in the usual fashion with 3-0 Vicryl repeat. EBL was 100 cc. Patient and infant tolerated delivery well. Presentation: MONI Placental Delivery Description: Spontaneous Placenta Disposition: [facility] Cord Entanglement: Around neck x 1, loose A gender: Female Episiotomy Description: None Laceration: Perineal Extension/lac, 2nd degree Medications given after delivery: IV Pitocin Complications: None
--- NOTE | 2018-06-07 21:34 | PCM.DCVAG ---
Discharge Diet: No Restrictions Discharge Activity: Return to Normal Activity, May not drive while taking narcotic pain medications., May Shower May resume sexual activity in: 4-6 weeks Call your doctor if your incision/area has: Continuous Slow Oozing, Sudden Increased Bleeding, Increased Pain/ Swelling, Increased Redness, Foul Smelling Discharge Additional Instructions: If you experience any of the following, contact your healthcare provider. Bleeding that soaks a pad every hour for 2 hours Fever 100.4 or higher Unrelieved incision or abdominal pain Swelling, redness, discharge or bleeding from your incision or episiotomy site Your incision begins to separate Problems urinating (including inability to urinate or burning while urinating). Visual changes Severe headache Flu-like symptoms Pain or redness in one of both of your breasts Pain, warmth, tenderness or swelling in your legs, especially the calf area Frequent nausea and vomiting Symptoms of depression or anxiety If you experience any of the following, call 911 or go to the nearest Emergency Room. Chest pain Problems breathing Seizure activity Partial or complete paralysis of a body part, slurred speech, weakness or drooping of the face, or a sudden inability to walk or hold your balance Allergies/Adverse Reactions: Allergies No Known Allergies Allergy (Verified 06/06/18 22:28) Medications to take at Discharge vitamin,calcium,bixjlpor-nwqw-ygech acid tablet 1 tab PO QDAY MDD one 10/24/17 Hydroxyprogesterone Caproate [Sharonda] IM QWEEK 04/08/18 diphenhydramine 25 mg capsule 50 mg PO Q4H PRN 04/25/18 Ibuprofen [Motrin] 600 mg PO Q6H PRN PRN #30 tablet 06/07/18 The following prescriptions were given: Ibuprofen [Motrin] 600 mg PO Q6H PRN PRN #30 tablet PRN Reason: Pain Please Follow Up With: Dianne Schaffer MD - [phone] When: Call to make an appointment with your doctor in 6 weeks. If you had elevated Blood pressure or 4th degree laceration you will need to be seen in 2 weeks. Primary Care Physician: Care Physician,No Primary [Primary Care Provider] - Test Results: Test results from this visit will be discussed in further detail at your follow-up appointment, if applicable.
[2018-06-07] MEDS: Dibucaine 30 GM Tube 1 APPLIC TOPICAL (21:38)
--- NOTE | 2018-06-07 21:39 | DCINST_ITS ---
Discharge Diet: No Restrictions Discharge Activity: Return to Normal Activity, May not drive while taking narcotic pain medications., May Shower May resume sexual activity in: 4-6 weeks Call your doctor if your incision/area has: Continuous Slow Oozing, Sudden Increased Bleeding, Increased Pain/ Swelling, Increased Redness, Foul Smelling Discharge Additional Instructions: If you experience any of the following, contact your healthcare provider. * Bleeding that soaks a pad every hour for 2 hours * Fever 100.4 or higher * Unrelieved incision or abdominal pain * Swelling, redness, discharge or bleeding from your incision or episiotomy site * Your incision begins to separate * Problems urinating (including inability to urinate or burning while urinating). * Visual changes * Severe headache * Flu-like symptoms * Pain or redness in one of both of your breasts * Pain, warmth, tenderness or swelling in your legs, especially the calf area * Frequent nausea and vomiting * Symptoms of depression or anxiety If you experience any of the following, call 911 or go to the nearest Emergency Room. * Chest pain * Problems breathing * Seizure activity * Partial or complete paralysis of a body part, slurred speech, weakness or drooping of the face, or a sudden inability to walk or hold your balance Allergies/Adverse Reactions: Allergies No Known Allergies Allergy (Verified 06/06/18 22:28) Medications to take at Discharge vitamin,calcium,vvqatpci-seom-zwvsu acid tablet 1 tab PO QDAY MDD one 10/24/17 Hydroxyprogesterone Caproate [[place]] IM QWEEK 04/08/18 diphenhydramine 25 mg capsule 50 mg PO Q4H PRN 04/25/18 Ibuprofen [Motrin] 600 mg PO Q6H PRN PRN #30 tablet 06/07/18 The following prescriptions were given: Ibuprofen [Motrin] 600 mg PO Q6H PRN PRN #30 tablet PRN Reason: Pain Please Follow Up With: Dianne Schaffer MD - [phone] When: Call to make an appointment with your doctor in 6 weeks. If you had elevated Blood pressure or 4th degree laceration you will need to be seen in 2 weeks. Primary Care Physician: Care Physician,No Primary [Primary Care Provider] - Test Results: Test results from this visit will be discussed in further detail at your follow- up appointment, if applicable.
[2018-06-07 23:16] VITALS: BP 108/58; PULSE 85; RESP 16; O2SAT 97
[2018-06-08] MEDS: Ibuprofen 600 MG Tablet PO ×3 (04:03→23:53)
[2018-06-08 04:05] VITALS: BP 101/63; PULSE 86; RESP 15; TEMP 36.3; O2SAT 97
[2018-06-08 08:21] VITALS: BP 141/69; PULSE 85; RESP 20; TEMP 36.4; O2SAT 97
--- NOTE | 2018-06-08 08:31 | PCM.PN.OB ---
Subjective: No CP, SOB. Some discomfort at vaginal lac site. - Physical Exam General: Alert, Oriented x3 Abdomen: Soft, Non Tender, - - FF below U Vital Signs Temp Pulse Resp BP Pulse Ox 97.4 F L 86 15 101/63 97 06/08/18 04:05 06/08/18 04:05 06/08/18 04:05 06/08/18 04:05 06/08/18 04:05 Oxygen Delivery Method Room Air Weight: 174 lb 12.8 oz Body Mass Index (BMI) 29.9 Intake and Output for Last 24 Hours 06/06/18 06/07/18 06/08/18 23:59 23:59 23:59 Intake Total 3487 / 3487 Output Total 1550 / 1550 Balance 193 / 193 Medical Necessity - Tobacco Use Smoking Status: Light Smoker (<10/day) Assessment/Plan All Active Problems (Last Reviewed 05/29/18 @ 10:30 by Amber Alex) False labor (Acute) Uterine size-date discrepancy in third trimester (Acute) Nephrolithiasis (Acute) screening encounter (Acute) Rubella non-immune status, antepartum (Acute) Chlamydia infection affecting in first trimester, antepartum (Acute) History of delivery, currently (Acute) Anxiety and depression (Acute) Supervision of high-risk (Acute) Threatened labor (Resolved) PPD#1: Routine care. Enc stool softener as ordered, OTC pain meds.
[2018-06-08] MEDS: Senna/Docusate Sodium 1 Tablet PO (10:25)
[2018-06-08] MEDS: oxyCODONE 5 MG Tablet PO ×2 (10:25→18:11)
[2018-06-08 13:00] VITALS: BP 106/56; PULSE 92; RESP 16; TEMP 36.3
[2018-06-08 16:00] VITALS: BP 112/61; PULSE 92; RESP 18; TEMP 36.8
[2018-06-08 20:30] VITALS: BP 126/78; PULSE 85; RESP 18; TEMP 36.6; O2SAT 98
[2018-06-09] MEDS: oxyCODONE 5 MG Tablet PO (00:13)
[2018-06-09 02:30] VITALS: BP 107/66; PULSE 86; RESP 16; TEMP 36.4; O2SAT 99
[2018-06-09 08:34] VITALS: BP 117/70; PULSE 81; RESP 18; TEMP 36.5; O2SAT 95
[2018-06-09] MEDS: Ibuprofen 600 MG Tablet PO (09:14)
--- NOTE | 2018-06-09 11:00 | CASEMGMT ---
Social Work Assessment Labor and Delivery Unit Date of Referral: 06/08/2018 Time of Referral: 0830 Referred By: notification by nursing staff Date of Intervention: 06/09/2018 Time of Intervention: 1100 Reason for Referral: maternal history of depression; upon chart review this race and sports book writer found indication of maternal use of marijuana this . History obtained from: Medical record and mother of baby (MOB) Gilda Mcgraw Household composition: MOB currently lives with parents and MOB?s 16-year-old sister. Reports home situation is safe and adequate. Patient's parent/guardian status: MOB and alleged father of baby (FOB) Román Leether are not currently together. MOB reports was with the FOB for 8 years, and even engaged, when FOB left MOB for an 18-year-old. MOB reports FOB is dealing with a meth addiction, which led to problems in the relationship. [place] baby is the first live for MOB and FOB together. [place] [facility]arette [facility], born 06.07.[birth year] Other children 19 or 20-week twin delivery, , born 17. Twins are named Rosa Isela and Garcia. FOB fathered these children as well. Medical History: MOB is G2, P0 to 1 after delivering Margarette, 1 2nd trimester twin loss in [facility]. care started this in the first trimester. Margarette delivered late at 36.4 weeks, weighted 5 pounds 3 ounces, Apgars 8 and 9 at 1 and 5 minutes of life. 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 MOB denies any issues with reading, writing, or learning comprehension. 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 MOB reports right now parents are helping financially. Infant Supplies: MOB reports to have needed baby supplies including a crib, bassinet, pack-n-play, clothing, diapers, wipes, and breast pump. Childcare/Caregiver(s): MOB. Transportation: Denies any issues. Programs/Agencies Involved: MOB reports to have food and medical through [facility], to have [facility] in place, and to have WIC. MOB reports to have a list of counseling options provided by the OBGYN. Children Services/Legal Issues: MOB denies history of legal and children services involvement. Behavioral Health Issues: Mental Health History: MOB reports depression after demise of twin delivery and again a flair when FOB left MOB. MOB denies that has thought of any suicide, no plans, thoughts, attempts. MOB reports was prescribed Celexa by ROBERT, took this for a short time but stopped 3 weeks ago. MOB reports not sure if will be restarting this or not, but has a prescription should symptoms arise, and MOB feel the need to restart medicine. MOB reports may just go with counseling and use a person that the OBGYN has recommended to MOB. Substance Use History: MOB reports history of marijuana use, reports use was just a onetime thing about 2 months ago after FOB left MOB. MOB reports as depressed so smoked marijuana. MOB reports to have no intent to restart use again. MOB reports felt terrible about self after smoked this drug during . MOB denies alcohol use or abuse, denies other illicit drug use including meth, heroin, cocaine, or prescription drug use. MOB does smoke tobacco daily. Drug Screens: Maternal drug screen positive on 04-08-18. No subsequent testing for MOB. It appears that no drug screen on baby done. (Did let parachute panel joiner know of this finding in MOB, but at point of knowledge too late to obtain meconium and urine specimens for baby) Family/Social Stressors: Loss of twins in April 2017, FOB reportedly turning to meth use after loss of twins, and then FOB eventually leaving MOB about 2 months ago. Support Systems: MOB reports that a best friend Karishma and MOB?s parents are greats supports to MOB. Depression/Shaken Baby/Safe Sleeping: MOB able to give appropriate responses to shaken baby and safe sleeping. Educated to depression, signs and symptoms, risk factors, and importance of caring for self in this time. ASSESSMENT: MOB pleasant, talkative, held good eye contact, bright affect, and appropriate mood. MOB reports to love the baby, to have positive feelings, and this race and sports book writer did observe MOB to hold baby, touch baby, gaze and smile at baby. MOB appearing appropriate in how handled the baby. MOB voiced regret about marijuana usage and maintains this was one-time instance, though did ask this race and sports book writer at about what time in this drug screen was positive. Informed MOB who reported this timeframe makes sense as this is the time that FOB left MOB. MOB denying intent to use marijuana again. Talked with MOB about non-recommendation regarding breast feeding and marijuana usage. MOB expressed understanding. MOB reports to have needed baby supplies, will have help from parent with the baby, and has no intent to allow FOB to care for baby, especially considering his active drug use. MOB accepted need to call children services due to maternal use of substances in . Talked with MOB about trends seeing regarding marijuana use in . MOB reports plan to call children service next week to see if a case will be opened for investigation. MOB reports not too worried if children services do happen to come out. Safe Plan of Care for related to substance use: MOB reports intent not to use. Explored with MOB that should something happen and MOB change mind for whatever reason, how would MOB make sure that baby is safe. MOB reports would not have the substance in the home and would make sure that a sober person cared for baby. MOB reports main plan is to just not use. PLAN: MOB and baby to home today. Will be calling children services related to substance exposed infant in utero. Resource lists given for [facility]. depression packet given. MOB has [facility], [facility], and WIC involvement. MOB has access to antidepressants and list of counselors if depression escalates at home. No other services requested or indicated. -BENJAMIN Carpenter, CABLE WEAVER
--- NOTE | 2018-06-09 13:10 | CASEMGMT ---
Social Work Labor and Delivery Unit Call to [facility] ([facility]) at [phone]. Spoke with Amy in the intake department. In line with the [place] act, referral to [facility] related to substance exposed . Brief maternal and histories provided, including maternal lab work showing positive in March. No subsequent testing or testing in baby. Reported risk factors present for this family including maternal mental health, not currently in treatment and alleged FOB having active issues with meth use, though not living in the home with MOB and baby. No other services requested or indicated. MOB and baby have been discharged home already with resources in place. See previous social work documentation for details. -KELSIE Carpenter, BILLET BED OPERATOR
[2018-06-12 15:23] LABS: Pathology Specimen OB SEE PATHOLOGY REPORT
== END 2018-06-09 11:45 | disposition home or self-care (01) | DRG 560 ==
LOC: WPOUT 00:30 → WP 00:30
PROVIDERS: Admitting Provider Obstetrics & Gynecology; Referring Provider Obstetrics & Gynecology; Visit Provider Obstetrics & Gynecology
DX: O60.14X0 Preterm labor third trimester with preterm delivery third trimester, not applicable or unspecified (principal); Z3A.36 36 weeks gestation of pregnancy; Z37.0 Single live birth; O70.1 Second degree perineal laceration during delivery; Z23 Encounter for immunization; O99.334 Smoking (tobacco) complicating childbirth; F17.200 Nicotine dependence, unspecified, uncomplicated
CPT/HCPCS: 59025; 59050; 85027; 86850; 86900; 88307; 99218; J7120; G0378; J2405

== ENCOUNTER → 2019-01-09 | Outpatient (CLI) | payer MEDICAID, SELFPAY ==
[2019-01-09 11:38] VITALS: BMI 29.9
[2019-01-09 20:20] LABS: Chlamydia Trachomatis by PCR Negative (Negative); Neisserai gonorrhoeae by PCR Negative (Negative); Probe Check PASS; Sample Adequacy Control PASS; Specimen Processing Control PASS
== END | disposition home or self-care (01) ==
LOC: LABSPEC 17:19
PROVIDERS: Referring Provider Nurse Practitioner Women's Health; Visit Provider Nurse Practitioner Women's Health
DX: N89.8 Other specified noninflammatory disorders of vagina (principal); Z11.3 Encounter for screening for infections with a predominantly sexual mode of transmission
CPT/HCPCS: 87070; 87086; 87088; 87205; 87491; 87591

== ENCOUNTER 2019-03-09 17:47 | Emergency (ER) | payer MEDICAID, SELFPAY ==
[2019-01-09 11:38] VITALS: BMI 29.9
[2019-03-09 17:48] VITALS: BP 149/87; PULSE 131; RESP 24; TEMP 37.1; O2SAT 99; BMI 31.9
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
[2019-03-09 18:20] LABS: Absolute Lymphocyte Count 1.88 X10^3/uL (0.83-4.51); Absolute Neutrophil Count 8.6 X10^3/uL (2.0-7.7); Basophil# 0.02 X10^3/uL; Basophil% 0.2 % (0-1); Eosinophils% 1.8 % (0-5); Hematocrit 38.8 % (37-47); Lymphocyte # 1.88 X10^3/ul (4.0); Lymphocyte % 16.5 % (19-41); Mean Corp Hgb Conc 33.5 g/dL (32-36); Mean Corpuscular Hgb 31.1 pg (27.0-32.0); Mean Corpuscular Volume 92.8 fL (81-99); Monocyte# 0.68 X10^3/uL; NRBC Flagged by Analyzer 0 % (0-5); Neutrophil # 8.59 X10^3/uL (2.7-7.7); Neutrophil % 75.1 % (47-70); Platelet Count 237 K/mm3 (150-450); RBC Distribution Width CV 13.3 % (11.6-14.6); RBC Distribution Width SD 45.6 fl (35.1-43.9); Red Blood Count 4.18 M/mm3 (4.2-5.4); White Blood Count 11.4 K/mm3 (4.4-11.0)
[2019-03-09] MEDS: Morphine 4 MG/ML Syringe IV (18:31)
[2019-03-09] MEDS: Ondansetron 4 MG/2 ML Vial IV (18:31)
[2019-03-09 18:46] LABS: Internal QC Validated? YES +Cl - CLEAR BKGD; Pregnancy, Serum, hCG Quali. NEGATIVE Negative
[2019-03-09 18:55] LABS: ALB/GLOB Ratio 1.2 RATIO (0.9-2.4); AST(SGOT) 15 U/L (15-37); Alanine Aminotransfer ALT/SGPT 17 U/L (13-56); Albumin, Serum 3.8 g/dL (3.2-5.0); Alkaline Phosphatase 71 U/L (45-117); Anion Gap 10 (5-15); BUN 16 mg/dL (7-18); BUN/Creat Ratio 16.8 RATIO (10-20); Calcium,Total 8.6 mg/dL (8.5-10.1); Chloride 109 mmol/L (98-107); Creatinine, Serum 0.95 mg/dL (0.55-1.02); EST Glomerular Filtration Rate 77 mL/min (>60); Est Glom Filt Rate - Afr Amer 93 mL/min (>60); Estimated Creatinine Clearance 79.53 ml/min; Globulin 3.2 g/dL (2.2-4.2); Glucose 124 mg/dL (74-106); Lipase 67 U/L (73-393); Potassium 3.5 mmol/L (3.5-5.1); Sodium Level 141 mmol/L (136-145)
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
[2019-03-09] MEDS: 0.9% Normal Saline 1,000 ML 1000 ML IV (19:41)
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
[2019-03-09 20:48] VITALS: BP 121/83; PULSE 102; RESP 16; O2SAT 98
== END 2019-03-09 20:58 | disposition home or self-care (01) ==
LOC: ED 18:12
PROVIDERS: Emergency Provider Emergency Medicine
DX: S00.83XA Contusion of other part of head, initial encounter (principal); S00.81XA Abrasion of other part of head, initial encounter; S30.1XXA Contusion of abdominal wall, initial encounter; M79.642 Pain in left hand; Y04.0XXA Assault by unarmed brawl or fight, initial encounter; Y93.9 Activity, unspecified; Y92.9 Unspecified place or not applicable; J45.909 Unspecified asthma, uncomplicated; Z87.442 Personal history of urinary calculi; Z72.0 Tobacco use
CPT/HCPCS: 70450; 70486; 73130; 74176; 80053; 83690; 84703; 85025; 96361; 96374; 96375; 99283; J7030; A4216; J2405

== ENCOUNTER → 2020-01-28 | Outpatient (CLI) | payer SELFPAY ==
[2020-01-28 10:17] VITALS: BMI 31.9
== END | disposition home or self-care (01) ==
PROVIDERS: Referring Provider Obstetrics & Gynecology; Visit Provider Obstetrics & Gynecology
DX: R30.0 Dysuria (principal)
CPT/HCPCS: 87086